=== PATIENT | female | born 1985 | race Hispanic/Latino ===

== ENCOUNTER 2018-07-14 12:02 | Emergency (ER) | payer SELFPAY ==
[~2018-07-14] VITALS: Ht 154.9 cm; Wt 90.7 kg
[2018-07-14 13:14] LABS: CLARITY,URINE CLEAR (CLEAR); COLOR,URINE YELLOW (YELLOW); LEUKOCYTE ESTERASE ,URINE NEGATIVE (NEGATIVE); NITRITE,URINE NEGATIVE (NEGATIVE)
[2018-07-14 13:15] LABS: BILIRUBIN,URINE NEGATIVE (NEGATIVE); KETONES,URINE NEGATIVE (NEGATIVE); PROTEIN,URINE DIPSTICK NEGATIVE (NEGATIVE); URINE UROBILINOGEN 0.2 mg/dL (0.2 - 1)
[2018-07-14 13:16] LABS: PREGNANCY TEST, URINE NEGATIVE (NEGATIVE)
[2018-07-14 13:29] LABS: BACTERIA,URINE FEW /HPF; EPITHELIAL CELLS,URINE RARE /LPF
--- NOTE | 2018-07-14 15:06 | Diagnostic Imaging Report ---
Examination: CT BRAIN WITHOUT CONTRAST History:Headache. Numbness of the tongue. Posterior neck pain Comparison studies:None Technique: Axial images were obtained from the skull base to the vertex. Coronal and sagittal images reconstructed from the axial data. Dose modulation, iterative reconstruction, and/or weight based adjustment of the mA/kV was utilized to reduce the radiation dose to as low as reasonably achievable. Intravenous contrast: None Findings: Scalp: No abnormalities. Bones: No fractures, blastic or lytic lesions. Brain sulci: Appropriate for age. Ventricles: Normal in size and configuration. No hydrocephalus. Extra-axial space: No abnormalities. Parenchyma: No abnormal densities. No masses, hemorrhage, or acute or chronic cortical based vascular insults.. Sellar/suprasellar region: Partially CSF filled sella. Craniocervical junction: Patent foramen magnum. No Chiari one malformation. Incidental findings: None. Impression: No intracranial abnormalities. Signed by: Dr. Mahogany Riojas M.D. on 07/14/2018 3:03 PM
[2018-07-14] MEDS ORDERED: IBUPROFEN 600 MG TAB PO ONE (15:10)
[2018-07-14] MEDS ORDERED: DIPHENHYDRAMINE HCL 25 MG CAP PO ONE (15:15)
[2018-07-14] MEDS ORDERED: METOCLOPRAMIDE HCL 10 MG TAB PO ONE (15:15)
[2018-07-14] MEDS ORDERED: IBUPROFEN 600 MG TAB ONE (15:16)
[2018-07-14] MEDS ORDERED: DIPHENHYDRAMINE HCL 25 MG CAP ONE (15:16)
[2018-07-14] MEDS ORDERED: METOCLOPRAMIDE HCL 10 MG TAB ONE (15:16)
[2018-07-14 16:03] VITALS: BP 114/73
== END 2018-07-14 16:06 | disposition home or self-care (01) ==
LOC: ER 12:02
DX: G44.211 Episodic tension-type headache, intractable (principal); M54.2 Cervicalgia; R11.0 Nausea
CPT/HCPCS: 70450; 81001; 81025; 99283

== ENCOUNTER 2018-07-16 08:58 | Emergency (ER) | payer SELFPAY ==
[~2018-07-16] VITALS: Ht 154.9 cm; Wt 90.7 kg
[2018-07-16] MEDS ORDERED: VALACYCLOVIR1000 MG PO (09:17)
[2018-07-16] MEDS ORDERED: PREDNISONE20 MG PO (09:19)
[2018-07-16] MEDS ORDERED: EYE DROP TEARS15 ML OP (09:20)
== END 2018-07-16 09:40 | disposition home or self-care (01) ==
LOC: ER 08:58
DX: G51.0 Bell's palsy (principal)
CPT/HCPCS: 99282